=== PATIENT | female | born 1950 | race Caucasian/White ===

== ENCOUNTER 2020-08-30 21:01 | Emergency (ER) | payer MEDICARE, OTHER ==
[2020-08-30] MEDS ORDERED: Sodium Chloride 0.9% 10 ML Syringe FLUSH PRN (21:19)
[2020-08-30] MEDS ORDERED: Sodium Chloride 0.9% 2.5 ML Syringe FLUSH PRN (21:19)
[2020-08-30] MEDS ORDERED: Metoprolol Tartrate 5 MG/5 ML SDV IVPUSH ONE (21:41)
[2020-08-30 21:59] LABS: BLOOD UREA NITROGEN,BUN 21 mg/dL (7.0-18.0); CARBON DIOXIDE,CO2 29.9 mmol/L (21.0-32.0); CHLORIDE,CL 100 mmol/L (98-107); GLUCOSE RANDOM 125 mg/dL (74-106); POTASSIUM,K 3.9 mmol/L (3.5-5.1); SODIUM,NA 138 mmol/L (136-145)
--- NOTE | 2020-08-30 22:20 | CR ---
INDICATION: Palpitations TECHNIQUE: PA and lateral views of the chest COMPARISON: None FINDINGS: The lungs are clear. There is no pleural effusion or pneumothorax. The cardiomediastinal silhouette is normal. The bones are demineralized. Mild anterior compression deformity is noted in the thoracic spine. IMPRESSION: No acute intrathoracic process. Osteopenia Dictated by Sharee Quezada MD @ Aug 30 2020 10:18PM Signed by Dr. Sharee Quezada @ Aug 30 2020 10:18PM
[2020-08-30] MEDS ORDERED: LORazepam 2 MG/ML SDV IVPUSH ONE (22:37)
--- NOTE | 2020-08-30 22:52 | EDM.PDOC ---
ED HPI GENERAL MEDICAL PROBLEM - General Chief Complaint: Cardiovascular Problem Stated Complaint: HIGH BLOOD PRESSURE Time Seen by Provider: 08/30/20 21:13 - History of Present Illness INITIAL COMMENTS - FREE TEXT/NARRATIVE: HISTORY AND PHYSICAL: History of present illness: This is a 69-year-old female who presents ER today secondary to elevated blood pressure. Patient reports that she has a history of hypertension and currently is on spironolactone 25 mg daily. Patient reports that she has had URI symptoms with rhinorrhea and congestion. Patient started taking Kennedi-D was Sudafed in it. She reports her last dose was at 9 AM. Patient denies any recent fevers, shakes, chills, nausea, vomiting, diarrhea, chest pain, shortness of breath. Patient reports that she felt palpitations along with your symptoms. Patient denies any weakness to her upper or lower extremities. Patient denies any slurring in her speech. Patient has any double or blurred vision. Patient reports that she has some discomfort to the back of her neck however no headaches. Review of systems: As per history of present illness and below otherwise all systems reviewed and negative. Past medical history: As per history of present illness and as reviewed below otherwise noncontributory. Surgical history: As per history of present illness and as reviewed below otherwise noncontributory. Social history: No reported history of drug or alcohol abuse. Family history: As per history of present illness and as reviewed below otherwise noncontributory. Physical exam: HEENT: Atraumatic, normocephalic, pupils reactive, negative for conjunctival pallor or scleral icterus, mucous membranes moist, throat clear, neck supple, nontender, trachea midline. Lungs: Clear to auscultation, breath sounds equal bilaterally, chest nontender. Heart: Regular rhythm with S1-S2. No JVD Abdomen: Soft, nondistended, nontender. Negative for masses or hepatosplenomegaly. Negative for costovertebral tenderness. Pelvis: Stable nontender. Genitourinary: Deferred. Rectal: Deferred. Extremities: Atraumatic, negative for cords or calf pain. Neurovascular unremarkable. Neuro: Awake, alert, oriented. Cranial nerves II through XII unremarkable. Cere bellum unremarkable. Motor and sensory unremarkable throughout. Exam nonfocal. Diagnostics: CBC, CMP, troponin, BNP all within normal limits. EKG: Normal sinus rhythm heart rate of [address]-T wave abnormalities Left axis deviation with QRS of 45. Left anterior hemiblock No evidence of ST elevation [place] As interpreted by ER physician: [employer]: Lopressor 5 mg IV ordered however patient's blood pressure is significant improved on its own. Assessment and plan: 69-year-old female who presents ER today secondary to elevated blood pressure and palpitations. This is likely contributed to by her recent Sudafed intake secondary to her URI symptoms. Patient's blood pressure and heart rate have improved and she has had no further episodes of palpitations. Patient denies any chest pressure or discomfort. Patient's presentation is not consistent with acute coronary syndrome. Patient feels improved while sitting in the ED. Patient's blood pressure is improved while in the ER. Patient be discharged home with instructions to refrain from any further usage of Sudafed and to follow-up with her primary care doctor in 1 to 2 days for reevaluation. Reassessment at the time of disposition demonstrates that the patient is in no acute distress. The patient has remained stable throughout the entire ED visit and is without objective evidence for acute process requiring urgent intervention or hospitalization. The patient is stable for discharge, counseling is provided as documented above, discussed symptomatic treatment and specific conditions for return. I have spoken with the patient/caregiver and discussed todays findings, in addition to providing specific details for the plan of care. Questions are answered and there is agreement with the plan. Definitive disposition and diagnosis as appropriate pending reevaluation and review of above. - Related Data Allergies Allergy/AdvReac Type Severity Reaction Status Date / Time No Known Allergies Allergy Verified 08/30/20 21:13 Home Meds: Home Meds Spironolactone [Aldactone] 25 mg PO DAILY 08/30/20 [History] Past Medical History Cardiovascular History: Reports: Hypertension Musculoskeletal History: Reports: Back Pain, Chronic - Past Surgical History Other Musculoskeletal Surgeries/Procedures:: R hip repair Social & Family History - Tobacco Use Tobacco Use Status *Q: Former Tobacco User Used Tobacco, but Quit: Yes Month/Year Tobacco Last Used: 08/2018 - Recreational Drug Use Recreational Drug Use: No ED ROS GENERAL - Review of Systems Review Of Systems: See Below ED EXAM, GENERAL - Physical Exam Exam: See Below #1 Interpretation EKG Interpretation Comments: Normal sinus rhythm heart rate of [address]-T wave abnormalities Left axis deviation with QRS of -45. Left anterior hemiblock No evidence of ST elevation [place] As interpreted by ER physician: [employer] [employer] - Vital Signs Last Recorded V/S: Last Vital Signs Temp 97.1 F 08/30/20 21:10 Pulse 74 08/30/20 23:11 Resp 18 08/30/20 23:11 BP 140/83 08/30/20 23:11 Pulse Ox 96 08/30/20 23:11 - Orders/Labs/Meds Orders: Active Orders 24 hr Category Date Time Status Saline Lock Insert [OM.PC] Stat Oth 08/30/20 21:20 Ordered Labs: Laboratory Tests 08/30/20 08/30/20 08/30/20 Range/Units 21:23 21:23 21:23 WBC 7.73 (4.0-11.0) K/uL RBC 4.96 (4.30-5.90) M/uL Hgb 15.2 (12.0-16.0) g/dL Hct 46.4 H (36.0-46.0) % MCV 93.5 (80.0-98.0) fL MCH 30.6 (27.0-32.0) pg MCHC 32.8 (31.0-37.0) g/dL RDW Std Deviation 48.4 (28.0-62.0) fl RDW Coeff of Henny 14 (11.0-15.0) % Plt Count 250 (150-400) K/uL MPV 10.30 (7.40-12.00) fL Neut % (Auto) 62.7 (48.0-80.0) % Lymph % (Auto) 25.9 (16.0-40.0) % [place] % (Auto) 9.1 (0.0-15.0) % Eos % (Auto) 1.8 (0.0-7.0) % Baso % (Auto) 0.5 (0.0-1.5) % Neut # (Auto) 4.9 (1.4-5.7) K/uL Lymph # (Auto) 2.0 (0.6-2.4) K/uL [place] # (Auto) 0.7 (0.0-0.8) K/uL Eos # (Auto) 0.1 (0.0-0.7) K/uL Baso # (Auto) 0.0 (0.0-0.1) K/uL Nucleated RBC % 0.0 /100WBC Nucleated RBCs # 0 K/uL Sodium 138 (136-145) mmol/L Potassium 3.9 (3.5-5.1) mmol/L Chloride 100 (98-107) mmol/L Carbon Dioxide 29.9 (21.0-32.0) mmol/L BUN 21 H (7.0-18.0) mg/dL Creatinine 1.1 H (0.6-1.0) mg/dL Est Cr Clr Drug Dosing TNP Estimated GFR (MDRD) 49.0 ml/min Glucose 125 H (74-106) mg/dL Calcium 9.7 (8.5-10.1) mg/dL Total Bilirubin 0.4 (0.2-1.0) mg/dL AST 18 (15-37) IU/L ALT 24 (14-63) IU/L Alkaline Phosphatase 107 (46-116) U/L Troponin I < 0.050 (0.000-0.056) ng/mL B-Natriuretic Peptide 10 (<100) PG/ML Total Protein 7.1 (6.4-8.2) g/dL Albumin 3.6 (3.4-5.0) g/dL Globulin 3.5 (2.6-4.0) g/dL Albumin/Globulin Ratio 1.0 (0.9-1.6) TSH 3rd Generation 1.10 (0.36-3.74) uIU/mL Meds: Medications Discontinued Medications Generic Name Dose Route Start Last Admin Trade Name Freq PRN Reason Stop Dose Admin Lorazepam 1 mg 08/30/20 22:37 Ativan IVPUSH 08/30/20 22:38 ONETIME ONE Metoprolol Tartrate 5 mg 08/30/20 21:41 08/30/20 22:00 Lopressor IVPUSH 08/30/20 21:42 Not Given ONETIME ONE Sodium Chloride 10 ml 08/30/20 21:19 Saline Flush FLUSH ASDIRECTED PRN Keep Vein Open Sodium Chloride 2.5 ml 08/30/20 21:19 Saline Flush FLUSH ASDIRECTED PRN Keep Vein Open Departure - Departure Time of Disposition: 22:51 Disposition: Home, Self-Care 01 Condition: Good Clinical Impression: Palpitations, Hypertension Instructions: Hypertension, Adult, [id number], Palpitations, [id number] Referrals: PCP,Not In Area [Primary Care Provider] - Forms: ED Department Discharge Additional Instructions: Please make an appointment to follow-up with your primary care doctor in the next 1 to 2 days to reevaluate your blood pressure. Please refrain from usage of any medications/drug products with pseudoephedrine as one of the ingredients. Please return the ER for any new or concerning symptoms. The following information is given to patients seen in the emergency department who are being discharged to home. This information is to outline your options for follow-up care. We provide all patients seen in our emergency department with a follow-up referral. The need for follow-up, as well as the timing and circumstances, are variable depending upon the specifics of your emergency department visit. If you don't have a primary care physician on staff, we will provide you with a referral. We always advise you to contact your personal physician following an emergency department visit to inform them of the circumstance of the visit and for follow-up with them and/or the need for any referrals to a consulting specialist. The emergency department will also refer you to a specialist when appropriate. This referral assures that you have the opportunity for follow-up care with a specialist. All of these measure are taken in an effort to provide you with optimal care, which includes your follow-up. Under all circumstances we always encourage you to contact your private physician who remains a resource for coordinating your care. When calling for follow-up care, please make the office aware that this follow-up is from your recent emergency room visit. If for any reason you are refused follow-up, please contact the [facility] Emergency Department at and asked to speak to the emergency department charge nurse. Sepsis Event Note (ED) - Evaluation Sepsis Screening Result: No Definite Risk - Focused Exam Vital Signs: Vital Signs Temp Pulse Resp BP Pulse Ox 08/30/20 23:11 74 18 140/83 96 08/30/20 22:30 78 18 147/89 H 95 08/30/20 21:45 82 20 154/94 H 94 L 08/30/20 21:10 97.1 F 100 20 196/112 H 97 - My Orders Last 24 Hours: My Active Orders 08/30/20 21:20 Saline Lock Insert [OM.PC] Stat - Assessment/Plan Last 24 Hours: My Active Orders 08/30/20 21:20 Saline Lock Insert [OM.PC] Stat
== END 2020-08-30 23:11 | disposition home or self-care (01) ==
LOC: MW.ED 21:01
DX: I10 Essential (primary) hypertension (principal); Z87.891 Personal history of nicotine dependence
CPT/HCPCS: 36415; 71046; 71046-26; 80053; 83880; 84443; 84484; 85025; 93005; 99283; 99285-25